=== PATIENT | male | born 1945 | race Caucasian/White ===

== ENCOUNTER 2022-03-29 08:13 | Emergency (ER) | payer MEDICARE ==
[2022-03-29 09:12] LABS: Absolute Neutrophil Ct (ANC) 5.11 x10^3/uL (1.4-6.9); Basophil (Absolute #) 0.05 x10^3/uL (0-0.4); Eosinophil % 2.6 % (0.00-5.0); Eosinophil (Absolute #) 0.19 x10^3/uL (0-0.5); Hematocrit 45.7 % (42-50); Hemoglobin 15.3 g/dL (12.5-18.0); Lymphocyte (Absolute #) 1.27 x10^3/uL (1.0-4.6); Lymphocytes % 17.5 % (24.0-44.0); Mean Cell Volume 91.6 fL (78-100); Mean Corpuscular Hemoglobin 30.7 pg (26-32); Mean Corpuscular Hgb Concent. 33.5 g/dL (32-36); Mean Platelet Volume 9.2 fL (7.5-11.0); Monocytes % 8.3 % (0.0-12.0); Neutrophil % 70.5 % (36.0-66.0); Platelet Count 204 x10^3/uL (150-450); Red Blood Count 4.99 x10^6/uL (4.1-5.6); Red Cell Distribution Width 12.2 % (11.5-14.0); White Blood Count 7.3 x10^3/uL (4.0-10.5)
[2022-03-29 09:16] LABS: Appearance CLEAR (CLEAR); Bilirubin NEGATIVE (NEGATIVE); Dipstick done @ ? MAIN LAB; Glucose NEGATIVE (NEGATIVE); Ketones NEGATIVE (NEGATIVE); Nitrite NEGATIVE (NEGATIVE); Protein,Urine Dip NEGATIVE (Negative); RBC NEGATIVE Ery/ul (0-5); Urobilinogen 0.2 mg/dL (0-1)
--- NOTE | 2022-03-29 09:20 | XRAY ---
Indication: Pneumonia. Comparison: None Portable chest demonstrates mild bibasilar infiltrates versus atelectasis. Remaining heart and upper lungs unremarkable. Bony thorax intact with osteopenia and degenerative changes.
--- NOTE | 2022-03-29 09:20 | ERPHSYRPT ---
- History of Present Illness Time Seen by Provider: 03/29/22 08:30 Source: patient Exam Limitations: no limitations Patient Subjective Stated Complaint: PATINO, nausea, dizziness Triage Nursing Assessment: pt to ED c/o PATINO, nausea without emesis, and di zziness. pt states he woke with these sx yesterday, PATINO has improved slightly with tylenol over last day but dizziness is not improving. denies neuro hx, reports HTN and anxiety. rates 5/10 now, last dose tylenol 0200. ambulates with steady gate per self. A&Ox4. heart sounds clear, lung sounds clear and active. Physician History: Patient is a 76-year-old male presents to emergency department for evaluation of headache nausea and dizziness. Symptoms began yesterday morning. Patient states he awoke with the symptoms. Patient self treated with Tylenol. Headache improved from an 8 to currently a 4. RN documents 5 however patient told me he has headache is 4 out of 10 at this time. Patient also feels dizzy. Patient has a history of peripheral vertigo. However he is unsure of his symptoms are the same. No associated chest pain or shortness of breath. No nausea vomiting or diaphoresis. Patient symptoms are constant. Symptoms are moderate in intensity. No specific worsening improving factors. Head movement does not reproduce symptoms. Patient voices no other complaints or concerns at this time. Portions of this note were created with voice recognition technology. There may be grammatical, spelling, punctuation or sound alike errors Timing/Duration: yesterday Severity: moderate Modifying Factors: Improves With: acetaminophen Associated Symptoms: nausea Allergies/Adverse Reactions: No Known Drug Allergies Allergy (Unverified 03/29/22 08:21) Home Medications: Amlodipine Besylate 5 mg [Norvasc 5 mg] 5 mg PO DAILY 03/29/22 [History] Citalopram Hydrobromide [Celexa] 10 mg PO DAILY 03/29/22 [History] Levothyroxine Sodium 100 Mcg [Synthroid 100 Mcg] 100 mcg PO DAILY 03/29/22 [History] Levothyroxine Sodium [Euthyrox] 75 mcg PO DAILY 03/29/22 [History] Lisinopril/Hydrochlorothiazide [Lisinopril-Hctz 20-25 mg Tab] 1 each PO DAILY 03/29/22 [History] Metoprolol Succinate 100 mg [Toprol Xl 100 MG] 100 mg PO BID 03/29/22 [History] Simvastatin 20Mg [Zocor 20Mg] 20 mg PO DAILY 03/29/22 [History] Tamsulosin HCl 0.4 mg [Flomax 0.4 MG] 0.4 mg PO DAILY 03/29/22 [History] Hx Tetanus, Diphtheria Vaccination/Date Given: No Hx Influenza Vaccination/Date Given: Yes Hx Pneumococcal Vaccination/Date Given: Yes Immunizations Up to Date: Yes Travel Risk - International Travel Have you traveled outside of the country in past 3 weeks: No - Coronavirus Screening Are you exhibiting any of the following symptoms?: Yes Symptoms: Vomiting/Diarrhea, Headaches/Body Aches/Fatigue Close contact with a COVID-19 positive Pt in past 14-21 Days: No - Vaccine Status Have you recieved a Covid-19 vaccination: Yes Network Specialist: [employer] - Vaccination Dates Date of 2cond Vaccination (if applicable): 2020 - Review of Systems Constitutional: No Symptoms, No Fever, No Chills Eyes: No Symptoms Ears, Nose, & Throat: No Symptoms Respiratory: No Symptoms, No Cough, No Dyspnea Cardiac: No Symptoms, No Chest Pain, No Edema, No Syncope Abdominal/Gastrointestinal: No Symptoms, No Abdominal Pain, No Nausea, No Vomiting, No Diarrhea Genitourinary Symptoms: No Symptoms, No Dysuria Musculoskeletal: No Symptoms, No Back Pain, No Neck Pain Skin: No Symptoms, No Rash Neurological: No Symptoms, No Dizziness, No Focal Weakness, No Sensory Changes Psychological: No Symptoms Endocrine: No Symptoms Hematologic/Lymphatic: No Symptoms Immunological/Allergic: No Symptoms All Other Systems: Reviewed and Negative - Past Medical History Pertinent Past Medical History: Yes Neurological History: No Pertinent History ENT History: No Pertinent History Cardiac History: Coronary Artery Disease, High Cholesterol, Hypertension, Other Respiratory History: No Pertinent History Endocrine Medical History: Hypothyroidism Musculoskeletal History: Fractures Other Medical History: SX HX: BACK SURGERY IN 2019, ONE CARDIAC STENT PLACED 20 YEARS AGO,. PMHX: FX CLAVICLE @ AGE 18. SPRAINED LEFT KNEE 8 MONTHS AGO AND STILL HAS SOME INTERMITTENT DISCOMFORT - STATES WAS MOWING ON A HILL AND LEG SLIPPED AND WENT ONE WAY AND BODY/MOWER WENT ANOTHER. - Past Surgical History Past Surgical History: Yes Neuro Surgical History: No Pertinent History Cardiac: Cardiac Catheterization, Cardiac Stent Respiratory: No Pertinent History Gastrointestinal: Cholecystectomy Genitourinary: No Pertinent History Musculoskeletal: No Pertinent History Male Surgical History: No Pertinent History - Social History Smoking Status: Never smoker Exposure to second hand smoke: No Drug Use: none Patient Lives Alone: No - Nursing Vital Signs Nursing Vital Signs: Initial Vital Signs Temperature 98.0 F 03/29/22 08:23 Pulse Rate 77 03/29/22 08:23 Respiratory Rate 20 03/29/22 08:23 Blood Pressure 151/70 03/29/22 08:23 O2 Sat by Pulse Oximetry 93 L 03/29/22 08:23 Pain Scale Pain Intensity 4 - Physical Exam General Appearance: no apparent distress, alert Eye Exam: PERRL/EOMI, eyes nml inspection Ears, Nose, Throat Exam: normal ENT inspection, TMs normal, pharynx normal, moist mucous membranes Neck Exam: normal inspection, non-tender, supple, full range of motion Respiratory Exam: normal breath sounds, lungs clear, airway intact, No respiratory distress Cardiovascular Exam: regular rate/rhythm, normal heart sounds, normal peripheral pulses Gastrointestinal/Abdomen Exam: soft, normal bowel sounds, No tenderness, No mass Back Exam: normal inspection, normal range of motion, No CVA tenderness, No vertebral tenderness Extremity Exam: normal inspection, normal range of motion, pelvis stable Neurologic Exam: alert, oriented x 3, cooperative, normal mood/affect, nml cerebellar function, nml station & gait, sensation nml, No motor deficits Skin Exam: normal color, warm, dry, No rash Lymphatic Exam: No adenopathy SpO2 Interpretation: normal SpO2: 94 O2 Delivery: Room Air - Course Nursing assessment & vital signs reviewed: Yes EKG Interpreted by Me: RATE (56), Sinus Rhythm, NORMAL AXIS, NORMAL INTERVALS - Radiology Exams Chest X-ray Interpretation: Teleradiologist Report (Osteopenia degenerative changes bibasilar infiltrate versus atelectasis.) - CT Exams Head CT Interpretation: Tele-radiologist Report (Nonacute senile brain with remote lacunar infarcts left basal ganglia external capsule) Ordered Tests: Active Orders 24 hr Category Date Time Status Coating Machine Feeder STAT Care 03/29/22 09:00 Active EKG-ER Only STAT Care 03/29/22 08:59 Active IV Insertion STAT Care 03/29/22 08:59 Active Pulse Oximetry (ED) STAT Care 03/29/22 08:59 Active CHEST 1 VIEW (PORTABLE) Stat Exams 03/29/22 09:00 Completed HEAD WITHOUT CONTRAST [CT] Stat Exams 03/29/22 09:02 Completed MRI BRAIN W/O CONTRAST [MRI] Stat Exams 03/29/22 14:08 Completed CBC W DIFF Stat Lab 03/29/22 08:59 Completed CMP Stat Lab 03/29/22 09:12 Completed ETHYL ALCOHOL Stat Lab 03/29/22 09:12 Completed TROPONIN Q4H Lab 03/29/22 09:12 Completed TROPONIN Q4H Lab 03/29/22 13:10 Completed TROPONIN Q4H Lab 03/29/22 17:00 Ordered TSH [TSH, 3RD Generation] Stat Lab 03/29/22 09:12 Completed UA W/RFX CULTURE Stat Lab 03/29/22 09:07 Completed Urine Triage Profile Stat Lab 03/29/22 09:06 Completed Medication Summary Discontinued Medications Generic Name Dose Route Start Last Admin Trade Name Mandy PRN Reason Stop Dose Admin Clindamycin HCl/Dextrose Confirm 03/29/22 13:58 Clindamycin-D5w 900 Mg/50 Ml Administered 03/29/22 13:59 Dose 900 mg in 50 mls @ IV .STK-MED ONE Ondansetron HCl 4 mg 03/29/22 10:39 03/29/22 13:59 Ondansetron Hcl 4 Mg/2 Ml Vial IV 03/29/22 10:40 Not Given STAT ONE Ondansetron HCl Confirm 03/29/22 10:42 Ondansetron Hcl 4 Mg/2 Ml Vial Administered 03/29/22 10:43 Dose 4 mg .ROUTE .STK-MED ONE Lab/Rad Data: Laboratory Result Diagrams 03/29/22 08:59 03/29/22 09:12 Laboratory Results 03/29/22 03/29/22 03/29/22 Range/Units 13:10 13:06 09:12 WBC (4.0-10.5) x10^3/uL RBC (4.1-5.6) x10^6/uL Hgb (12.5-18.0) g/dL Hct (42-50) % MCV (78-100) fL MCH (26-32) pg MCHC (32-36) g/dL RDW (11.5-14.0) % Plt Count (150-450) x10^3/uL MPV (7.5-11.0) fL Gran % (36.0-66.0) % Immature Gran % (Auto) (0.00-0.4) % Nucleat RBC Rel Count (0.00-0.1) % Eos # (Auto) (0-0.5) x10^3/uL Immature Gran # (Auto) (0.00-0.03) x10^3u/L Absolute Lymphs (auto) (1.0-4.6) x10^3/uL Absolute Monos (auto) (0.0-1.3) x10^3/uL Absolute Nucleated RBC (0.00-0.01) x10^3u/L Lymphocytes % (24.0-44.0) % Monocytes % (0.0-12.0) % Eosinophils % (0.00-5.0) % Basophils % (0.0-0.4) % Absolute Granulocytes (1.4-6.9) x10^3/uL Basophils # (0-0.4) x10^3/uL Sodium (137-145) mmol/L Potassium (3.5-5.1) mmol/L Chloride (98-107) mmol/L Carbon Dioxide (22-30) mmol/L Anion Gap (5-15) MEQ/L BUN (9-20) mg/dL Creatinine (0.66-1.25) mg/dL Estimated GFR ML/MIN Glucose (74-106) mg/dL Calcium (8.4-10.2) mg/dL Total Bilirubin (0.2-1.3) mg/dL AST (17-59) U/L ALT (0-50) U/L Alkaline Phosphatase (38-126) U/L Troponin I < 0.012 (0.000-0.034) ng/mL Serum Total Protein (6.3-8.2) g/dL Albumin (3.5-5.0) g/dL TSH 3rd Generation 5.890 H (0.47-4.68) mIU/L Urinalys Dipstick Clnc Urine Color (YELLOW) Urine Appearance (CLEAR) Urine pH (5-6) Ur Specific Lucas (1.005-1.025) POC Urine Protein Conf (Negative) Urine Ketones (NEGATIVE) Urine Nitrite (NEGATIVE) Urine Bilirubin (NEGATIVE) Urine Urobilinogen (0-1) mg/dL Urine Leukocytes (NEGATIVE) Urine WBC (Auto) (0-5) /HPF Urine RBC (Auto) (0-2) /HPF U Epithel Cells (Auto) (FEW) /HPF Urine Bacteria (Auto) (NEGATIVE) /HPF Urine RBC (0-5) Chavo/ul Ur Culture Indicated? Urine Glucose (NEGATIVE) mg/dL Urine Opiates Level (NEGATIVE) Ur Methadone (NEGATIVE) Urine Barbiturates (NEGATIVE) Ur Phencyclidine (PCP) (NEGATIVE) Urine Amphetamine (NEGATIVE) U Benzodiazepine Level (NEGATIVE) Urine Cocaine (NEGATIVE) Urine Marijuana (THC) (NEGATIVE) Ethyl Alcohol (0-10) mg/dL Influenza Type A Ag NEGATIVE (NEGATIVE) Influenza Type B Ag NEGATIVE (NEGATIVE) RSV (PCR) NEGATIVE (Negative) SARS-CoV-2 (PCR) NEGATIVE (NEGATIVE) 03/29/22 03/29/22 03/29/22 Range/Units 09:12 09:12 09:07 WBC (4.0-10.5) x10^3/uL RBC (4.1-5.6) x10^6/uL Hgb (12.5-18.0) g/dL Hct (42-50) % MCV (78-100) fL MCH (26-32) pg MCHC (32-36) g/dL RDW (11.5-14.0) % Plt Count (150-450) x10^3/uL MPV (7.5-11.0) fL Gran % (36.0-66.0) % Immature Gran % (Auto) (0.00-0.4) % Nucleat RBC Rel Count (0.00-0.1) % Eos # (Auto) (0-0.5) x10^3/uL Immature Gran # (Auto) (0.00-0.03) x10^3u/L Absolute Lymphs (auto) (1.0-4.6) x10^3/uL Absolute Monos (auto) (0.0-1.3) x10^3/uL Absolute Nucleated RBC (0.00-0.01) x10^3u/L Lymphocytes % (24.0-44.0) % Monocytes % (0.0-12.0) % Eosinophils % (0.00-5.0) % Basophils % (0.0-0.4) % Absolute Granulocytes (1.4-6.9) x10^3/uL Basophils # (0-0.4) x10^3/uL Sodium 138 (137-145) mmol/L Potassium 4.0 (3.5-5.1) mmol/L Chloride 104 (98-107) mmol/L Carbon Dioxide 25 (22-30) mmol/L Anion Gap 13.0 (5-15) MEQ/L BUN 17 (9-20) mg/dL Creatinine 0.81 (0.66-1.25) mg/dL Estimated GFR > 60.0 ML/MIN Glucose 116 H (74-106) mg/dL Calcium 9.4 (8.4-10.2) mg/dL Total Bilirubin 0.90 (0.2-1.3) mg/dL AST 35 (17-59) U/L ALT 42 (0-50) U/L Alkaline Phosphatase 74 (38-126) U/L Troponin I < 0.012 (0.000-0.034) ng/mL Serum Total Protein 7.2 (6.3-8.2) g/dL Albumin 4.5 (3.5-5.0) g/dL TSH 3rd Generation (0.47-4.68) mIU/L Urinalys Dipstick Clnc MAIN LAB Urine Color YELLOW (YELLOW) Urine Appearance CLEAR (CLEAR) Urine pH 7.0 (5-6) Ur Specific Lucas 1.010 (1.005-1.025) POC Urine Protein Conf NEGATIVE (Negative) Urine Ketones NEGATIVE (NEGATIVE) Urine Nitrite NEGATIVE (NEGATIVE) Urine Bilirubin NEGATIVE (NEGATIVE) Urine Urobilinogen 0.2 (0-1) mg/dL Urine Leukocytes NEGATIVE (NEGATIVE) Urine WBC (Auto) NONE (0-5) /HPF Urine RBC (Auto) NONE (0-2) /HPF U Epithel Cells (Auto) NONE (FEW) /HPF Urine Bacteria (Auto) NONE (NEGATIVE) /HPF Urine RBC NEGATIVE (0-5) Chavo/ul Ur Culture Indicated? NO Urine Glucose NEGATIVE (NEGATIVE) mg/dL Urine Opiates Level (NEGATIVE) Ur Methadone (NEGATIVE) Urine Barbiturates (NEGATIVE) Ur Phencyclidine (PCP) (NEGATIVE) Urine Amphetamine (NEGATIVE) U Benzodiazepine Level (NEGATIVE) Urine Cocaine (NEGATIVE) Urine Marijuana (THC) (NEGATIVE) Ethyl Alcohol < 10 (0-10) mg/dL Influenza Type A Ag (NEGATIVE) Influenza Type B Ag (NEGATIVE) RSV (PCR) (Negative) SARS-CoV-2 (PCR) (NEGATIVE) 03/29/22 03/29/22 Range/Units 09:06 08:59 WBC 7.3 (4.0-10.5) x10^3/uL RBC 4.99 (4.1-5.6) x10^6/uL Hgb 15.3 (12.5-18.0) g/dL Hct 45.7 (42-50) % MCV 91.6 (78-100) fL MCH 30.7 (26-32) pg MCHC 33.5 (32-36) g/dL RDW 12.2 (11.5-14.0) % Plt Count 204 (150-450) x10^3/uL MPV 9.2 (7.5-11.0) fL Gran % 70.5 H (36.0-66.0) % Immature Gran % (Auto) 0.4 (0.00-0.4) % Nucleat RBC Rel Count 0.0 (0.00-0.1) % Eos # (Auto) 0.19 (0-0.5) x10^3/uL Immature Gran # (Auto) 0.03 (0.00-0.03) x10^3u/L Absolute Lymphs (auto) 1.27 (1.0-4.6) x10^3/uL Absolute Monos (auto) 0.60 (0.0-1.3) x10^3/uL Absolute Nucleated RBC 0.00 (0.00-0.01) x10^3u/L Lymphocytes % 17.5 L (24.0-44.0) % Monocytes % 8.3 (0.0-12.0) % Eosinophils % 2.6 (0.00-5.0) % Basophils % 0.7 (0.0-0.4) % Absolute Granulocytes 5.11 (1.4-6.9) x10^3/uL Basophils # 0.05 (0-0.4) x10^3/uL Sodium (137-145) mmol/L Potassium (3.5-5.1) mmol/L Chloride (98-107) mmol/L Carbon Dioxide (22-30) mmol/L Anion Gap (5-15) MEQ/L BUN (9-20) mg/dL Creatinine (0.66-1.25) mg/dL Estimated GFR ML/MIN Glucose (74-106) mg/dL Calcium (8.4-10.2) mg/dL Total Bilirubin (0.2-1.3) mg/dL AST (17-59) U/L ALT (0-50) U/L Alkaline Phosphatase (38-126) U/L Troponin I (0.000-0.034) ng/mL Serum Total Protein (6.3-8.2) g/dL Albumin (3.5-5.0) g/dL TSH 3rd Generation (0.47-4.68) mIU/L Urinalys Dipstick Clnc Urine Color (YELLOW) Urine Appearance (CLEAR) Urine pH (5-6) Ur Specific Lucas (1.005-1.025) POC Urine Protein Conf (Negative) Urine Ketones (NEGATIVE) Urine Nitrite (NEGATIVE) Urine Bilirubin (NEGATIVE) Urine Urobilinogen (0-1) mg/dL Urine Leukocytes (NEGATIVE) Urine WBC (Auto) (0-5) /HPF Urine RBC (Auto) (0-2) /HPF U Epithel Cells (Auto) (FEW) /HPF Urine Bacteria (Auto) (NEGATIVE) /HPF Urine RBC (0-5) Chavo/ul Ur Culture Indicated? Urine Glucose (NEGATIVE) mg/dL Urine Opiates Level NEGATIVE (NEGATIVE) Ur Methadone NEGATIVE (NEGATIVE) Urine Barbiturates NEGATIVE (NEGATIVE) Ur Phencyclidine (PCP) NEGATIVE (NEGATIVE) Urine Amphetamine NEGATIVE (NEGATIVE) U Benzodiazepine Level NEGATIVE (NEGATIVE) Urine Cocaine NEGATIVE (NEGATIVE) Urine Marijuana (THC) NEGATIVE (NEGATIVE) Ethyl Alcohol (0-10) mg/dL Influenza Type A Ag (NEGATIVE) Influenza Type B Ag (NEGATIVE) RSV (PCR) (Negative) SARS-CoV-2 (PCR) (NEGATIVE) - Progress Progress: improved Progress Note: Chest x-ray shows bibasilar infiltrate versus atelectasis. Infiltrate is less likely given that patient has no respiratory complaints no tachypnea no hypoxia no fever no cough. CT head negative for acute intracranial pathology. However remote lacunar infarcts at the left basal ganglia and external capsule were identified. Laboratory work-up otherwise essentially nonremarkable. NIH score negative. However NIH does not test for posterior circulation/cerebellar strokes. Bedside neurologic/hints/ exam nonremarkable. Telemetry neuro consult pending. Telemetry neuro believes that patient's dizziness is peripheral. They are advising CT head. If CT head is negative for acute infarct patient may be discharged home and treated as an outpatient. 03/29/22 10:15 CT head reveals atrophy and degenerative micro ischemia. Remote lacunar infarct left external capsule. Work-up reveals hypothyroidism 03/29/22 16:16 We intended to contact Dr. Resendez however still awaiting a return call. Patient and no longer want to wait. They are aware that there thyroid medication may need to be adjusted as patient's TSH is elevated. In addition patient will need follow-up for further evaluation and treatment of his peripheral vertigo. Family agrees to follow-up with their nurse practitioner within 48 hours for evaluation. Portions of this note were created with voice recognition technology. There may be grammatical, spelling, punctuation or sound alike errors 03/29/22 17:05 Counseled pt/family regarding: lab results, diagnosis, need for follow-up, rad results - Departure Departure Disposition: Home Clinical Impression: Remote lacunar infarct, Peripheral vertigo, Hypothyroidism Condition: Stable Critical Care Time: No Referrals: TC PLASENCIA NP [Primary Care Provider] - Follow up/PCP as directed Additional Instructions: Discharge/Care Plan STEFANIE GARCIA was seen on 03/29/22 in the Emergency Room. The patient was counseled regarding Diagnosis,Lab results, Imaging studies, need for follow up and when to return to the Emergency Room. Prescriptions given: Discharge Note I have spoken with the patient and/or caregivers. I have explained the patient's condition, diagnosis and treatment plan based on the information available to me at this time. I have answered the patient's and/or caregiver's questions and addressed any concerns. The patient and/or caregivers have as good understanding of the patient's diagnosis, condition and treatment plan as can be expected at this point. The vital signs have been stable. The patient's condition is stable and appropriate for discharge from the emergency department. The patient will pursue further outpatient evaluation with the primary care physician or other designated or consulting physician as outlined in the discharge instructions. The patient and/or caregivers are agreeable to this plan of care and follow-up instructions have been explained in detail. The patient and/or caregivers have received these instruction. The patient/and or caregivers are aware that any significant change in condition or worsening of symptoms should prompt an immediate return to this or the closest emergency department or call 911. Prescriptions: Ondansetron ODT 4 MG [Zofran Odt 4 mg] 4 mg PO Q6H PRN PRN #10 tablet PRN Reason: Vomiting Meclizine HCl 25 mg [Antivert 25 mg] 25 mg PO DAILY PRN 7 Days #7 tablet PRN Reason: Dizziness
[2022-03-29 09:24] LABS: Urine Cultured Indicated? NO
[2022-03-29 09:29] LABS: ALBUMIN 4.5 g/dL (3.5-5.0); ALKALINE PHOSPHATASE 74 U/L (38-126); BLOOD UREA NITROGEN 17 mg/dL (9-20); CHLORIDE 104 mmol/L (98-107); Calcium 9.4 mg/dL (8.4-10.2); Carbon Dioxide 25 mmol/L (22-30); Creatinine 1 0.81 mg/dL (0.66-1.25); EST GLOMERULAR FILTRATION RATE > 60.0 ML/MIN; ETHYL ALCOHOL < 10 mg/dL (0-10); Glucose 116 mg/dL (74-106); SGOT/AST 35 U/L (17-59); SGPT/ALT 42 U/L (0-50); SODIUM 138 mmol/L (137-145); Total Protein 7.2 g/dL (6.3-8.2)
[2022-03-29 09:33] LABS: Amphetamine,Urine NEGATIVE (NEGATIVE); Barbiturate,Urine NEGATIVE (NEGATIVE); Benzodiazepine,Urine NEGATIVE (NEGATIVE); Cocaine,Urine NEGATIVE (NEGATIVE); Methadone,Urine NEGATIVE (NEGATIVE); Opiate,Urine NEGATIVE (NEGATIVE); PCP,Urine NEGATIVE (NEGATIVE); THC,Urine NEGATIVE (NEGATIVE)
--- NOTE | 2022-03-29 10:05 | XRAY ---
Indication: Headache and dizziness. Multiple contiguous axial images obtained through the head without contrast. Comparison: None Age-appropriate global atrophy and minimal periventricular degenerative micro-ischemia bilaterally. Small remote lacunar infarcts left basal ganglia/external capsule. No acute intracranial hemorrhage, abnormal extra-axial fluid collection, or mass effect. Fourth ventricle is midline without hydrocephalus. Bony calvarium intact. Visualized paranasal sinuses and mastoid air cells are clear. Impression: Nonacute senile brain with remote lacunar infarcts left basal ganglia/external capsule.
[2022-03-29] MEDS ORDERED: Zofran 4 MG/2 ML VIAL IV ONE (10:39)
[2022-03-29] MEDS ORDERED: Zofran 4 MG/2 ML VIAL ONE (10:42)
[2022-03-29 13:40] LABS: INFLUENZA A NEGATIVE (NEGATIVE); INFLUENZA B NEGATIVE (NEGATIVE); RESPIRATORY SYNCTIAL VIRUS NEGATIVE (Negative); SARS-CoV-2 Xpert Express NEGATIVE (NEGATIVE)
[2022-03-29] MEDS ORDERED: CLINDAMYCIN-D5W 900 MG/50 ML*** 900 MG/50 ML BAG IV ONE (13:58)
--- NOTE | 2022-03-29 14:53 | XRAY ---
Indication: Headache and dizziness. Stroke. Sagittal, coronal, and axial MRI brain performed without contrast using T1, T2, FLAIR, diffusion, and ADC sequences. Comparison: None Age-appropriate global atrophy and minimal periventricular degenerative micro-ischemia signal bilaterally. Remote lacunar infarct leftexternal capsule. Diffusion images are negative for restricted signal. No acute intracranial hemorrhage, abnormal extra-axial fluid collection, or mass effect. Fourth ventricle is midline without hydrocephalus. 7/8 cranial nerve complex bilaterally symmetric. Normal flow-void signal within the major intracerebral circulation. Normal-appearing craniocervical junction and sella turcica. Paranasal sinuses are clear. Impression: 1. Atrophy and degenerative micro-ischemia within normal limits for patient's age. 2. Remote lacunar infarct left external capsule. 3. No acute intracranial abnormalities or evidence for evolving large vessel territory stroke.
[2022-03-29 16:21] VITALS: O2SAT 94
[2022-03-29 17:17] VITALS: BP 148/79; PULSE 55
== END 2022-03-29 17:17 | disposition home or self-care (01) ==
LOC: ED 08:13
DX: H81.399 Other peripheral vertigo, unspecified ear (principal); E03.9 Hypothyroidism, unspecified; Z86.73 Personal history of transient ischemic attack (TIA), and cerebral infarction without residual deficits; R51.9 Headache, unspecified; R11.0 Nausea; E78.5 Hyperlipidemia, unspecified; I10 Essential (primary) hypertension; Z79.899 Other long term (current) drug therapy; Z20.828 Contact with and (suspected) exposure to other viral communicable diseases
CPT/HCPCS: 0241U; 36000; 36415; 70450; 70551; 71045; 80053; 80307; 81015; 84443; 84484; 85025; 93005; 93041; 94760; 99284; G0480; J2405

== ENCOUNTER 2023-04-12 15:07 | Day surgery (SDC) | payer MEDICARE ==
[2023-04-12] MEDS ORDERED: LIDOCAINE HCL 1% 50 MG/5 ML VL PF IJ ONE (15:08)
[2023-04-12] MEDS ORDERED: Depo-Medrol 40 MG/ML IM ONE (15:08)
--- NOTE | 2023-04-12 22:49 | XRAY ---
Indication: Left hip injection. Intraoperative fluoroscopy provided for 13 seconds. Single digital spot image submitted for interpretation demonstrates needle tip projecting just lateral to left femur neck. Small amount of contrast injected for needle tip placement. Correlate with intraoperative findings/report.
--- NOTE | 2023-04-13 09:07 | XRAY ---
13 seconds of fluoroscopy was used in surgery for a left intra-articular hip injection.
== END 2023-04-12 17:47 | disposition home or self-care (01) ==
LOC: SDC-PAIN 15:07
PROVIDERS: ATTEND Psychiatry & Neurology Pain Medicine
DX: M16.12 Unilateral primary osteoarthritis, left hip (principal); Z79.899 Other long term (current) drug therapy
CPT/HCPCS: 20610; 73501; 77002; J1030; J2001; Q9966

== ENCOUNTER 2023-05-24 13:22 | Day surgery (SDC) | payer MEDICARE | END 2023-05-24 14:15 | disposition home or self-care (01) | LOC: SDC-PAIN 13:22 | PROVIDERS: ATTEND Psychiatry & Neurology Pain Medicine | DX: Z53.8 Procedure and treatment not carried out for other reasons (principal) ==

== ENCOUNTER 2024-05-06 06:30 | Day surgery (SDC) | payer MEDICARE ==
[2024-05-06] MEDS ORDERED: Lactated Ringers 1,000 ML IV ONE (06:58)
[2024-05-06] MEDS: Lactated Ringers 1,000 ML IV SCH (07:01)
[2024-05-06 07:02] VITALS: RESP 18
[2024-05-06] MEDS ORDERED: DIPRIVAN 200 MG/20 ML IV ONE ×2 (07:58→08:06)
[2024-05-06 08:46] VITALS: TEMP 98.3
[2024-05-06 09:02] VITALS: BP 150/68; PULSE 58; O2SAT 97
--- NOTE | 2024-05-07 11:29 | OP ---
SURGERY DATE/TIME: 05/06/2024 [id number] PREOPERATIVE DIAGNOSIS: History of colon polyps. POSTOPERATIVE DIAGNOSIS: Moderate sigmoid diverticulosis; otherwise, normal colon. PROCEDURE: Colonoscopy. SURGEON: Pineda De La Torre MD ANESTHESIA: Medication given by the anesthesia department. INDICATIONS: The patient is a 78-year-old white male patient presenting now for colonoscopy. He reports he previously had colon polyps removed. He has no problems presently and presents now for screening examination. The patient was appraised of the risks of the procedure including risk of perforation, phlebitis, untoward reaction to medication, bleeding, and missed lesions. The patient verbalized his understanding and desired to have the procedure performed. DESCRIPTION OF PROCEDURE AND FINDINGS: Patient was given medication by the anesthesia department and had continuous pulse oximetry, ECG monitoring, and intermittent blood pressure monitoring, and end-tidal CO2 monitoring during the examination. He was placed in the left lateral decubitus position. Digital rectal examination was performed and revealed external hemorrhoids, no masses, and normal prostate. The flexible Olympus videocolonoscope was used to intubate the rectum. A view of the colon was developed sequentially to the cecum. Upon insertion and withdrawal including retroflexion in the rectum was noted to be moderate sigmoid diverticulosis, but otherwise no other mucosal lesions. The scope was removed. The patient tolerated the procedure well and was sent back to outpatient recovery in good condition. The prep was noted to be fair.
== END 2024-05-06 09:08 | disposition home or self-care (01) ==
LOC: SDC 06:30
PROVIDERS: ATTEND Family Medicine
DX: Z09 Encounter for follow-up examination after completed treatment for conditions other than malignant neoplasm (principal); Z86.010 Personal history of colon polyps; K57.30 Diverticulosis of large intestine without perforation or abscess without bleeding; K64.4 Residual hemorrhoidal skin tags
CPT/HCPCS: J2704

== ENCOUNTER 2025-06-12 11:03 | Emergency (ER) | payer MEDICARE ==
[2025-06-12 11:23] VITALS: TEMP 95.2
--- NOTE | 2025-06-12 11:24 | ERPHSYRPT ---
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 The patient had a mild amount of nausea yesterday with mild pain in the left upper quadrant of his abdomen which completely resolved per his report. This morning the pain returned. While he was using the restroom on the toilet, he suddenly began having diarrheal stools that were black/dark and vomited up black dark vomitus. He is not on any anticoagulation therapy. He has no liver disease. Patient does not use tobacco. He does drink alcohol daily but did not drink alcohol yesterday. He typically has a glass of wine and a couple of beers in a 24-hour period. Patient underwent a colonoscopy approximately [address] De La Torre and there were no significant concerns or findings per patient report. Patient does not have chest pain he has no shortness of breath. He does take a baby aspirin a day. He has a history of coronary disease and has a single cardiac stent that was placed 30 years ago. Patient has a history of prostate issues, hypertension on 4 different medications, peripheral neuropathy, depression/anxiety, hypothyroidism and hyperlipidemia. Patient states he does have arthritis and uses Tylenol arthritis medication. He is not taking NSAIDs. He currently has no significant abdominal pain Timing/Duration: today Activities at Onset: none Quality: cramping Abdominal Pain Onset Location: LUQ (Resolved) Severity of Pain-Max: mild Severity of Pain-Current: none Modifying Factors: Improves With: vomiting (Hematemesis) Associated Symptoms: loss of appetite, nausea, vomiting, other (Hematemesis and melena stools) Previous symptoms: no prior history, no recent treatment Allergies/Adverse Reactions: latex Allergy (Severe, Verified 06/12/25 11:09) Swelling Home Medications: Amlodipine Besylate 5 mg [Norvasc 5 mg] 5 mg PO DAILY 03/29/22 [History] Citalopram Hydrobromide [Celexa] 5 mg PO DAILY 03/29/22 [History] Levothyroxine Sodium [Euthyrox] 0.87 mcg PO DAILY 03/29/22 [History] Metoprolol Succinate 100 mg [Toprol Xl 100 MG] 100 mg PO BID 03/29/22 [History] Simvastatin 20Mg [Zocor 20Mg] 20 mg PO DAILY 03/29/22 [History] Tamsulosin HCl 0.4 mg [Flomax 0.4 MG] 0.4 mg PO DAILY 03/29/22 [History] Aspirin [Aspirin EC] 81 mg PO DAILY 03/18/24 [History] Gabapentin 100 mg PO BID 03/18/24 [History] Hydralazine HCl 10 mg PO TID 03/18/24 [History] Losartan/Hydrochlorothiazide [Losartan-Hctz 100-25 mg Tab] 1 each PO UD 03/18/24 [History] Hx Tetanus, Diphtheria Vaccination/Date Given: No Hx Influenza Vaccination/Date Given: No Hx Pneumococcal Vaccination/Date Given: Yes Travel Risk - International Travel Have you traveled outside of the country in past 3 weeks: No - Emerging Infectious Disease Are you exhibiting symptoms associated with any current EIDs: Yes Symptoms: Diarrhea, Vomitting - Review of Systems Constitutional: No Symptoms Eyes: No Symptoms Ears, Nose, & Throat: No Symptoms Respiratory: No Symptoms Abdominal/Gastrointestinal: Abdominal Pain (Left upper quadrant resolved), Vomiting, Hematemesis, Melena (Single episode) Genitourinary Symptoms: No Symptoms Musculoskeletal: No Symptoms Skin: No Symptoms Neurological: No Symptoms Psychological: No Symptoms Endocrine: No Symptoms Hematologic/Lymphatic: No Symptoms Immunological/Allergic: No Symptoms All Other Systems: Reviewed and Negative - Past Medical History Pertinent Past Medical History: Yes Neurological History: No Pertinent History ENT History: No Pertinent History Cardiac History: Coronary Artery Disease, High Cholesterol, Hypertension, Other Respiratory History: No Pertinent History Endocrine Medical History: Hypothyroidism Musculoskeletal History: Fractures Other Medical History: SX HX: BACK SURGERY IN 2019, ONE CARDIAC STENT PLACED 20 YEARS AGO,. PMHX: FX CLAVICLE @ AGE 18. SPRAINED LEFT KNEE 8 MONTHS AGO AND STILL HAS SOME INTERMITTENT DISCOMFORT - STATES WAS MOWING ON A HILL AND LEG SLIPPED AND WENT ONE WAY AND BODY/MOWER WENT ANOTHER. - Past Surgical History Past Surgical History: Yes Neuro Surgical History: No Pertinent History Cardiac: Cardiac Catheterization, Cardiac Stent Respiratory: No Pertinent History Gastrointestinal: Cholecystectomy Genitourinary: No Pertinent History Musculoskeletal: No Pertinent History Male Surgical History: No Pertinent History Other Surgical History: left hip replacement. left knee replacement - Social History Smoking Status: Never smoker Exposure to second hand smoke: No Drug Use: none - Social Determinants of Health Will the patient participate in the screening: Yes Do you worry about a steady place to live?: No Do you have any problems with any of the following?: No known problems In the past 12 months,have you had to go without utilities?: No Transportation Issues: No Has anyone in your support network made you feel unsafe?: No Have you or anyone in your house had to go w/o enough food: No - Nursing Vital Signs Nursing Vital Signs: Initial Vital Signs Pulse Rate 71 06/12/25 11:13 Respiratory Rate 14 06/12/25 11:13 Blood Pressure 136/65 06/12/25 11:13 O2 Sat by Pulse Oximetry 96 06/12/25 11:13 Pain Scale Pain Intensity 0 - Physical Exam General Appearance: no apparent distress, alert, anxiety, obese Eye Exam: PERRL/EOMI, eyes nml inspection Ears, Nose, Throat Exam: normal ENT inspection, moist mucous membranes Neck Exam: normal inspection, non-tender, supple, full range of motion Respiratory Exam: normal breath sounds, lungs clear, airway intact, No chest tenderness, No respiratory distress Cardiovascular Exam: regular rate/rhythm, normal heart sounds, normal peripheral pulses Gastrointestinal/Abdomen Exam: soft, normal bowel sounds, No tenderness Rectal Exam: not done Back Exam: normal inspection, normal range of motion, No CVA tenderness, No vertebral tenderness Extremity Exam: normal inspection, normal range of motion, pelvis stable Neurologic Exam: alert, oriented x 3, cooperative, filling layer up II-XII nml as tested, normal mood/affect, nml cerebellar function, nml station & gait, sensation nml Skin Exam: normal color, warm, No dry Lymphatic Exam: No adenopathy SpO2 Interpretation: normal O2 Delivery: Room Air - Course Nursing assessment & vital signs reviewed: Yes EKG Interpreted by Me: RATE (68), Sinus Rhythm, NORMAL AXIS, NORMAL INTERVALS, NORMAL QRS, Other (QTc is 419. No acute ischemia on this lead EKG.) Ordered Tests: Active Orders 24 hr Category Date Time Status EKG-ER Only STAT Care 06/12/25 11:45 Active IV Insertion STAT Care 06/12/25 11:45 Active ABDOMEN AND PELVIS W/0 CONTRAS [CT] Stat Exams 06/12/25 11:47 Completed AMYLASE Stat Lab 06/12/25 11:40 Completed CBC W DIFF Stat Lab 06/12/25 11:40 Completed CMP Stat Lab 06/12/25 11:40 Completed LIPASE Stat Lab 06/12/25 11:40 Completed PROTIME WITH INR Stat Lab 06/12/25 11:40 Completed TROPONIN Q4H Lab 06/12/25 11:40 Completed TROPONIN Q4H Lab 06/12/25 16:00 Ordered TROPONIN Q4H Lab 06/12/25 20:00 Ordered Medication Summary Discontinued Medications Generic Name Dose Route Start Last Admin Trade Name Freq PRN Reason Stop Dose Admin Sodium Chloride 1,000 mls @ 999 mls/hr 06/12/25 11:45 06/12/25 13:09 Sodium Chloride 0.9% 1000 Ml IV 06/12/25 12:45 Infused .Q1H1M STA Infusion Sodium Chloride Confirm 06/12/25 11:51 Sodium Chloride 0.9% 1000 Ml Administered 06/12/25 11:52 Dose 1,000 mls @ ud .ROUTE .STK-MED ONE Ondansetron HCl 4 mg 06/12/25 11:45 06/12/25 11:52 Ondansetron Hcl 4 Mg/2 Ml Vial IV 06/12/25 11:46 4 mg STAT ONE Administration Ondansetron HCl Confirm 06/12/25 11:50 Ondansetron Hcl 4 Mg/2 Ml Vial Administered 06/12/25 11:51 Dose 4 mg .ROUTE .STK-MED ONE Pantoprazole Sodium 40 mg 06/12/25 11:45 06/12/25 11:52 Pantoprazole 40 Mg Vial IV 06/12/25 11:46 40 mg STAT ONE Administration Pantoprazole Sodium Confirm 06/12/25 11:50 Pantoprazole 40 Mg Vial Administered 06/12/25 11:51 Dose 40 mg IV .STK-MED ONE Sterile Water Confirm 06/12/25 11:51 Water For Injection,Sterile 10 Ml Vial Administered 06/12/25 11:52 Dose 10 ml IJ .K-MED ONE Lab/Rad Data: Laboratory Result Diagrams 06/12/25 11:40 06/12/25 11:40 Laboratory Results 06/12/25 06/12/25 06/12/25 Range/Units 11:40 11:40 11:40 WBC (4.23-9.07) x10^3/uL RBC (4.63-6.08) x10^6/uL Hgb (13.7-17.5) g/dL Hct (40.1-51.0) % MCV (79.0-92.2) fL MCH (25.7-32.2) pg MCHC (32.3-36.5) g/dL RDW (11.6-14.4) % Plt Count (163-337) x10^3/uL MPV (9.4-12.4) fL Gran % (34.0-67.9) % Immature Gran % (Auto) (0.001-0.429) % Nucleat RBC Rel Count (0.00-0.2) % Eos # (Auto) (0.04-0.54) x10^3/uL Immature Gran # (Auto) (0.001-0.031) x10^3u/L Absolute Lymphs (auto) (1.32-3.57) x10^3/uL Absolute Monos (auto) (0.30-0.82) x10^3/uL Absolute Nucleated RBC (0.00-0.012) x10^3u/L Lymphocytes % (21.8-53.1) % Monocytes % (5.3-12.2) % Eosinophils % (0.8-7.0) % Basophils % (0.2-1.2) % Absolute Granulocytes (1.78-5.38) x10^3/uL Basophils # (0.01-0.08) x10^3/uL PT 11.3 (9.4-12.5) SECONDS INR 1.01 (0.8-3.0) Sodium 137 (135-145) mmol/L Potassium 3.7 (3.5-5.1) mmol/L Chloride 104 (98-107) mmol/L Carbon Dioxide 24 (22-30) mmol/L Anion Gap 12.8 (5-15) MEQ/L BUN 25 H (9-20) mg/dL Creatinine 0.87 (0.66-1.25) mg/dL Estimated GFR 88.3 ML/MIN Glucose 132 H (74-106) mg/dL Calcium 9.2 (8.4-10.2) mg/dL Total Bilirubin 1.30 (0.2-1.3) mg/dL AST 30 (17-59) U/L ALT 32 (0-50) U/L Alkaline Phosphatase 50 (38-126) U/L Troponin I < 0.012 (0.000-0.033) ng/mL Serum Total Protein 6.0 L (6.3-8.2) g/dL Albumin 4.0 (3.5-5.0) g/dL Amylase 43 (30-110) U/L Lipase 45 (23-300) U/L 10/30/25 Range/Units 11:40 WBC 9.9 H (4.23-9.07) x10^3/uL RBC 4.15 L (4.63-6.08) x10^6/uL Hgb 13.4 L (13.7-17.5) g/dL Hct 39.1 L (40.1-51.0) % MCV 94.2 H (79.0-92.2) fL MCH 32.3 H (25.7-32.2) pg MCHC 34.3 (32.3-36.5) g/dL RDW 12.5 (11.6-14.4) % Plt Count 227 (163-337) x10^3/uL MPV 9.0 L (9.4-12.4) fL Gran % 78.2 H (34.0-67.9) % Immature Gran % (Auto) 0.5 H (0.001-0.429) % Nucleat RBC Rel Count 0.0 (0.00-0.2) % Eos # (Auto) 0.13 (0.04-0.54) x10^3/uL Immature Gran # (Auto) 0.05 H (0.001-0.031) x10^3u/L Absolute Lymphs (auto) 1.17 L (1.32-3.57) x10^3/uL Absolute Monos (auto) 0.76 (0.30-0.82) x10^3/uL Absolute Nucleated RBC 0.00 (0.00-0.012) x10^3u/L Lymphocytes % 11.8 L (21.8-53.1) % Monocytes % 7.7 (5.3-12.2) % Eosinophils % 1.3 (0.8-7.0) % Basophils % 0.5 (0.2-1.2) % Absolute Granulocytes 7.72 H (1.78-5.38) x10^3/uL Basophils # 0.05 (0.01-0.08) x10^3/uL PT (9.4-12.5) SECONDS INR (0.8-3.0) Sodium (135-145) mmol/L Potassium (3.5-5.1) mmol/L Chloride (98-107) mmol/L Carbon Dioxide (22-30) mmol/L Anion Gap (5-15) MEQ/L BUN (9-20) mg/dL Creatinine (0.66-1.25) mg/dL Estimated GFR ML/MIN Glucose (74-106) mg/dL Calcium (8.4-10.2) mg/dL Total Bilirubin (0.2-1.3) mg/dL AST (17-59) U/L ALT (0-50) U/L Alkaline Phosphatase (38-126) U/L Troponin I (0.000-0.033) ng/mL Serum Total Protein (6.3-8.2) g/dL Albumin (3.5-5.0) g/dL Amylase (30-110) U/L Lipase (23-300) U/L - Progress Progress: improved, re-examined Progress Note: 06/12/25 12:30 My medical decision making and the assignment of moderate complexity of this patient's medical issue today is based on review of the patient's past medical history, review the patient's medication list, reviewed patient drug allergy list, history present illness and physical findings on examination. The workup of this patient includes placement of images line, infusion of normal saline solution, infusion of Zofran 4 mg, infusion of Protonix 40 mg, CBC, CMP, PT/INR, CAT scan of the abdomen pelvis without contrast, twelve-lead EKG and troponin level. Differential diagnosis includes but not limited to gastritis, peptic ulcer disease/gastric ulcer, diverticulosis, liver disease 06/12/25 13:48 I interpreted the patient's laboratory data results. Based on laboratory data results there are no acute or emergent findings. CT scan of the abdomen pelvis was interpreted by radiologist and I reviewed the impression. The impression states no acute intra-abdominal or intrapelvic abnormalities. There are chronic findings of pulmonary emphysema, pulmonary fibrosis/scarring, borderline cardiomegaly, hiatal hernia, colonic diverticulosis and enlarged prostate. Counseled pt/family regarding: lab results, diagnosis, need for follow-up, rad results Medical Desision Making - Independent Historian Additional History obtained from: Spouse - Diagnostic Testing Diagnostic test were ordered, analyzed, and reviewed by me: Yes Radiological Interpretation: Reviewed by me, Teleradiologist Report - Risk of complications Low Risk: Low risk of morbidity from additional dx testing or treatment The pt has a mod risk of morbidity or mortality based on: Need for prescription drug management - Departure Departure Disposition: Home Clinical Impression: Hematemesis, Melena Condition: Stable Critical Care Time: No Referrals: TC PLASENCIA NP [Primary Care Provider, [facility]] - Follow up/PCP as directed Additional Instructions: Drink plenty of clear liquids. Avoid aspirin, spicy foods, nicotine/tobacco, alcohol, greasy foods. May use Tylenol for pain issues. Call your primary care provider today, 06/12/2025, to make arrangements for follow-up appointment for further evaluation and management including referral for an upper endoscopy if indicated. Prescriptions: Ondansetron ODT 4 MG [Zofran Odt 4 mg] 4 mg PO Q6H PRN PRN #10 tablet PRN Reason: Vomiting PANTOPRAZOLE 40 mg Tablet [Protonix 40MG Tablet] 40 mg PO QPM #21 tab
[2025-06-12] MEDS ORDERED: Zofran 4 MG/2 ML VIAL ONE (11:50)
[2025-06-12] MEDS ORDERED: PROTONIX 40 MG IV IV ONE (11:50)
[2025-06-12 11:51] LABS: BASOPHIL % 0.5 % (0.2-1.2); Basophil (Absolute #) 0.05 x10^3/uL (0.01-0.08); Eosinophil (Absolute #) 0.13 x10^3/uL (0.04-0.54); Hematocrit 39.1 % (40.1-51.0); Hemoglobin 13.4 g/dL (13.7-17.5); IMMATURE GRAN # 0.05 x10^3u/L (0.001-0.031); IMMATURE GRAN % 0.5 % (0.001-0.429); Lymphocyte (Absolute #) 1.17 x10^3/uL (1.32-3.57); Mean Corpuscular Hemoglobin 32.3 pg (25.7-32.2); Mean Corpuscular Hgb Concent. 34.3 g/dL (32.3-36.5); Monocyte (Absolute #) 0.76 x10^3/uL (0.30-0.82); NUCLEATED RBC # 0.00 x10^3u/L (0.00-0.012); NUCLEATED RBC % 0.0 % (0.00-0.2); Platelet Count 227 x10^3/uL (163-337); Red Blood Count 4.15 x10^6/uL (4.63-6.08); White Blood Count 9.9 x10^3/uL (4.23-9.07)
[2025-06-12] MEDS ORDERED: Sterile H2O 10 ml IJ ONE (11:51)
[2025-06-12] MEDS: Zofran 4 MG/2 ML VIAL IV ONE (11:52)
[2025-06-12] MEDS: PROTONIX 40 MG IV IV ONE (11:52)
[2025-06-12 12:00] LABS: INR 1.01 (0.8-3.0); PROTIME 11.3 SECONDS (9.4-12.5)
[2025-06-12 12:09] LABS: Calcium 9.2 mg/dL (8.4-10.2); Carbon Dioxide 24.0 mmol/L (22-30); Creatinine 1 0.87 mg/dL (0.66-1.25); EST GLOMERULAR FILTRATION RATE 88.3 ML/MIN; Glucose 132.0 mg/dL (74-106); Potassium 3.7 mmol/L (3.5-5.1); SGOT/AST 30.0 U/L (17-59); SGPT/ALT 32.0 U/L (0-50); Total Protein 6.0 g/dL (6.3-8.2)
[2025-06-12 13:26] VITALS: PULSE 67; O2SAT 95
--- NOTE | 2025-06-12 13:30 | XRAY ---
Indication: Hematemesis. Melena stool. Multiple contiguous axial images obtained through the abdomen and pelvis without contrast. Comparison: January 24, 2023. Lung bases again demonstrates pulmonary emphysema with scattered fibrosis/scarring bilaterally. No infiltrate or effusion. Heart again borderline enlarged. Stable small hiatal hernia. Again beam artifact from L3-L4 fusion hardware. New beam artifact from left hip arthroplasty. Noncontrasted stomach and bowel loops appear nonobstructed. Normal appendix. Again descending/sigmoid diverticulosis, tiny splenic calcified granulomas, enlarged prostate gland, and previous cholecystectomy. No free fluid/air. Remaining liver, pancreas, spleen, adrenal glands, kidneys, ureters, and bladder are unremarkable for noncontrast exam. Again moderate diffuse scattered vascular calcifications. No AAA. Osseous structures intact again with osteopenia, mild/moderate degenerative changes throughout spine, and moderate/advanced right hip degenerative arthropathy. Impression: 1. Beam artifact from L3-L4 fusion hardware and left hip arthroplasty. 2. Again chronic findings including pulmonary emphysema, pulmonary fibrosis/scarring, borderline cardiomegaly, hiatal hernia, colonic diverticulosis, enlarged prostate gland, arteriosclerotic disease, chronic bony findings, and old granulomatous disease. 3. No acute intra-abdominal/pelvic abnormalities on this noncontrast exam.
[2025-06-12 14:08] VITALS: BP 113/63; RESP 17
== END 2025-06-12 14:12 | disposition home or self-care (01) ==
LOC: ED 11:03
DX: K92.1 Melena (principal); K92.0 Hematemesis; I10 Essential (primary) hypertension; Z79.899 Other long term (current) drug therapy

== ENCOUNTER 2025-06-24 06:03 | Day surgery (SDC) | payer MEDICARE ==
[2025-06-24] MEDS ORDERED: Lactated Ringers 1,000 ML IV ONE (06:14)
[2025-06-24] MEDS: Lactated Ringers 1,000 ML IV SCH (06:22)
[2025-06-24 06:36] VITALS: RESP 16; O2SAT 97
[2025-06-24 06:55] LABS: Calcium 9.1 mg/dL (8.4-10.2); Carbon Dioxide 24.0 mmol/L (22-30); Creatinine 1 0.87 mg/dL (0.66-1.25); EST GLOMERULAR FILTRATION RATE 88.3 ML/MIN; Glucose 121.0 mg/dL (74-106); Potassium 3.6 mmol/L (3.5-5.1)
[2025-06-24] MEDS ORDERED: propofoL IV ONE (06:59)
[2025-06-24] MEDS ORDERED: Xylocaine-Mpf 2% 5 Ml Vial ONE (06:59)
[2025-06-24 07:46] VITALS: BP 134/53; PULSE 55; TEMP 98.7
--- NOTE | 2025-06-25 08:40 | OP ---
SURGERY DATE/TIME: 06/24/2025 [id number] PREOPERATIVE DIAGNOSIS: Hematemesis. POSTOPERATIVE DIAGNOSIS: Normal esophagus, stomach and duodenum. OPERATIVE PROCEDURE: Esophagogastroduodenoscopy. SURGEON: Pineda De La Torre MD. ANESTHESIA: Medication given by the Anesthesia department. HISTORY: The patient is a 79-year-old white male patient who approximately a week ago had an episode of hematemesis that was described as bright red blood and blood even coming out of his nose and the patient also reports he was having some black tarry stools, which has since stopped. The patient has been holding his aspirin for the past couple of days and was placed on pantoprazole from the emergency room. Patient was described the risks of the procedure including risk of perforation, phlebitis, untoward reaction to medication, bleeding, and missed lesions. The patient verbalized his understanding and desired to have procedure performed DESCRIPTION OF PROCEDURE AND FINDINGS: Patient was given medication by the Anesthesia department. He had continuous pulse oximetry, ECG monitoring, and intermittent blood pressure monitoring during the examination. He was placed in the left lateral decubitus position. A bite block was placed. A flexible Olympus gastroscope was used to intubate the oropharynx, which appeared to be essentially normal. The esophagus was entered and appeared to be normal throughout its length. The stomach was entered where normal gastric rugal folds were seen. These distended nicely with insufflation of air. The scope was passed along the greater curvature of the stomach to the antrum. The pylorus was encountered and intubated. The duodenum was inspected and found to be essentially normal. The scope was withdrawn towards the stomach. Again, a retroflexed view was obtained of the lesser curvature, fundus, and cardia regions of the stomach. These also appeared to be normal. The scope was then re-directed toward the gastric antrum and once again, everything was inspected and found to be normal. The scope was then removed from the patient. He tolerated the procedure well and was sent back to outpatient recovery in good condition.
== END 2025-06-24 08:07 | disposition home or self-care (01) ==
LOC: SDC 06:03
PROVIDERS: ATTEND Family Medicine
DX: K92.0 Hematemesis (principal); I10 Essential (primary) hypertension